=== PATIENT | male | born 1975 | race Caucasian/White ===

== ENCOUNTER 2021-05-30 15:28 | Emergency (ER) | payer SELFPAY ==
[2021-05-30 15:36] VITALS: BP 131/84; PULSE 98; RESP 16; O2SAT 98; BMI 23.0
--- NOTE | 2021-05-30 15:38 | XR_ITS ---
FINAL REPORT CLINICAL HISTORY: rolled ankle, PAIN AND SWELLING FINDINGS: RIGHT ANKLE Three views demonstrate no acute fracture or dislocation. The joint spaces appear normal. There is lateral soft tissue swelling. IMPRESSION: Soft tissue swelling with no acute bony abnormality. Reviewed, Interpreted and Dictated by Pedro Murillo III, MD Transcribed by Helen Nick Authenticated by Pedro Murillo III, MD on 05/30/2021 04:40:50 PM [facility]
[2021-05-30 16:15] VITALS: BP 131/84; PULSE 98; RESP 16; TEMP 36.7; O2SAT 98; BMI 23.1
--- NOTE | 2021-05-30 16:42 | HMH.EDUTC ---
[facility] Dis[place] Clinical Impression: Cellulitis Qualifiers: Site of cellulitis: unspecified site Qualified Code(s): L03.90 - Cellulitis, unspecified Ankle sprain Qualifiers: Encounter type: initial encounter Involved ligament of ankle: unspecified ligament Laterality: left Qualified Code(s): S93.402A - Sprain of unspecified ligament of left ankle, initial encounter Disposition: Home, Self-Care Condition on Discharge: Good Instructions: Cellulitis, Cephalexin, Mupirocin Additional Instructions: *Start antibiotic(s) immediately and be sure to take as ordered for the FULL length of time although you may be feeling better or start to see improvement in the next 24-48 hours *Monitor closely. Outlined redness so that you can monitor easier. Follow up immediately for new or worsening symptoms including but not limited to redness, swelling, streaking from site fever or chills. *Warm compress 15 minutes 3-4 times day *Never squeeze or pop these on your own. Seek immediate medical attention next time this occurs *Monitor Temp. Tylenol every 4 hours as needed and ibuprofen every 6 hours as needed (as long as your primary care doctor has told you that it is ok to take both. For fever, aches, pain. ER if no less that 101 despite Tylenol and ibuprofen Follow up with your family doctor/primary care physician in the next 48-72 hours if no improvement Return if needed Straight to ER if any life threatening symptoms Prescriptions: cephALEXin [cephALEXin 500mg capsule*] 500 mg PO Q6H 7 Days #28 cap Transmission Status: P[facility] to [facility] Mupirocin Calcium [Mupirocin 2% Cream 15gm] 1 applicatio TP TID 10 Days #30 gm Transmission Status: [facility] to [facility] Referrals: Provider,Referral, [Primary Care Provider] - As needed Forms: Work/School Release Time of Disposition: 16:54 Medical Decision Making - Thien Inquiry Pt receiving controlled substance: No Thien was queried for this patient: No Vital Signs: 05/30/21 15:36 05/30/21 16:15 Temperature 98.0 F Temperature Source Oral Pulse Rate [Left Radial] 98 H 98 H Respiratory Rate 16 16 Blood Pressure [Right Arm] 131/84 131/84 Blood Pressure Mean [Right Arm] 99 99 Blood Pressure Source [Right Arm] Automatic Cuff Blood Pressure Position [Right Arm] Sitting 02 Sat by Pulse Oximetry 98 98 Oxygen Delivery Method Room Air Room Air - Radiology Data #1 Image(s): Ankle Image Reviewed: Yes I have reviewed radiologist's interpretation IMPRESSION: Soft tissue swelling with no acute bony abnormality. [facility] HPI - General Stated complaint: AO 05/28@1500@Home Injured R ankle Time Seen by Provider: 05/30/21 16:42 Mode of Arrival: Ambulatory Source of Information: Patient Limitations: No Limitations Description of Symptoms (Recalled from Triage Doc. by RN): PATIENT C/O RIGHT ANKLE PAIN AFTER TWISTING IT ON SUNDAY HEENT Symptoms (Recalled from RN notes): No Resp Symptoms (Recalled from RN notes): No Skin Symptoms (Recalled from RN notes): No MS Symptoms (Recalled from RN notes): Yes Functional Status (Recalled from RN notes): WNL - History of Present Illness Provider Complaint: Patient states that he twisted his ankle on Sunday and he has been having some pain and swelling since States that he noticed it was tender when he would walk on it or touch it so he came in to get checked - Related Data Previous Rx's Medication Instructions Recorded Mupirocin Calcium [Mupirocin 2% 1 applicatio TP TID 10 Days #30 gm 05/30/21 Cream 15gm] cephALEXin [cephALEXin 500mg 500 mg PO Q6H 7 Days #28 cap 05/30/21 capsule*] Allergies Allergy/AdvReac Type Severity Reaction Status Date / Time No Known Allergies Allergy Verified 05/30/21 15:37 - Worker's Comp Is this a Worker's Comp case?: No [facility] History - Hepatitis A Screen Drug use history?: No High risk sexual behaviors?: No History of sexually transmitted infection?: No
[2021-05-30 17:05] VITALS: BP 131/84; PULSE 98; RESP 16; TEMP 36.7; O2SAT 98
== END 2021-05-30 17:08 | disposition home or self-care (01) ==
LOC: ER 15:40 → UTC 15:45
PROVIDERS: Emergency Provider Nurse Practitioner
DX: S93.402A Sprain of unspecified ligament of left ankle, initial encounter (principal); A49.01 Methicillin susceptible Staphylococcus aureus infection, unspecified site; L03.90 Cellulitis, unspecified; Z79.899 Other long term (current) drug therapy
CPT/HCPCS: 73610; 87070; 87077; 87186; 87205; 99213; G0463